=== PATIENT | male | born 1995 | race African-American/Black ===

== ENCOUNTER 2018-06-09 12:06 | Emergency (ER) | payer BC, OTHER, SELFPAY ==
--- NOTE | 2018-06-09 15:22 | RAD ---
LEFT SHOULDER THREE VIEWS 06/09/18 HISTORY: 23-year-old male with history of left shoulder pain following a fall off a horse one week ago. FINDINGS/IMPRESSION: No fracture, dislocation, or other significant acute osseous abnormality. POS: [facility]
== END 2018-06-09 13:30 | disposition home or self-care (01) ==
LOC: NAV ERS 12:06
DX: M25.512 Pain in left shoulder (principal); F17.210 Nicotine dependence, cigarettes, uncomplicated; J45.909 Unspecified asthma, uncomplicated